=== PATIENT | female | born 1950 | race Caucasian/White ===

== ENCOUNTER 2016-07-07 08:25 | Emergency (ER) | payer MEDICARE, OTHER ==
[~2016-07-07 08:25] MED LIST: ASPIRIN81 MG PO; BENTYL20 MG PO; CITRACAL + D C1 EACH PO; COZAAR50 MG PO; GLUCOSAMINE CH1 EAC2 PO; MULTIVITAMIN1 TAB PO; NORCO 5-325 TA1 EACH PO; OMEGA 31 CAP PO; SIMVASTATIN20 MG PO; SYNTHROID75 MCG PO; VITAMIN D1000 UNIT PO; ZOFRAN4 M2 PO
[2016-07-07] MEDS ORDERED: NORCO 5-325 TA1 EACH PO (09:05)
== END 2016-07-07 09:16 ==
LOC: EDMED 08:25
PROC: 2W3BX1Z Immobilization of Left Upper Arm using Splint (ICD-10-PCS; principal; 2016-07-07)
DX: S52.132A Displaced fracture of neck of left radius, initial encounter for closed fracture (principal); S62.316A Displaced fracture of base of fifth metacarpal bone, right hand, initial encounter for closed fracture; E78.5 Hyperlipidemia, unspecified; E03.9 Hypothyroidism, unspecified; Z88.2 Allergy status to sulfonamides; Z79.890 Hormone replacement therapy; Z79.899 Other long term (current) drug therapy; Z79.82 Long term (current) use of aspirin; W01.0XXA Fall on same level from slipping, tripping and stumbling without subsequent striking against object, initial encounter; Y92.014 Private driveway to single-family (private) house as the place of occurrence of the external cause